=== PATIENT | male | born 1950 | race Two or more races ===

== ENCOUNTER 2021-11-22 07:55 | Outpatient (CLI) | payer OTHER | END 2021-11-22 08:07 | disposition home or self-care (01) | LOC: MRI 07:55 | PROVIDERS: ATTEND Urology | DX: N28.1 Cyst of kidney, acquired (principal); N40.0 Benign prostatic hyperplasia without lower urinary tract symptoms; R97.20 Elevated prostate specific antigen [PSA] | CPT/HCPCS: 74183; A9575 ==

== ENCOUNTER 2022-05-23 11:46 | Outpatient (CLI) | payer OTHER | END 2022-05-23 11:52 | disposition home or self-care (01) | LOC: SONOGRAMA 11:46 | PROVIDERS: ATTEND Urology | DX: N40.0 Benign prostatic hyperplasia without lower urinary tract symptoms (principal); R97.20 Elevated prostate specific antigen [PSA]; N28.1 Cyst of kidney, acquired ==

== ENCOUNTER 2022-12-18 07:07 | Outpatient (CLI) | payer OTHER | END 2022-12-18 07:17 | disposition home or self-care (01) | LOC: MRI 07:07 | PROVIDERS: ATTEND Urology | DX: N28.89 Other specified disorders of kidney and ureter (principal) | CPT/HCPCS: 74181 ==

== ENCOUNTER 2023-08-29 07:46 | Outpatient (CLI) | payer OTHER | END 2023-08-29 07:58 | disposition home or self-care (01) | LOC: MRI 07:46 | PROVIDERS: ATTEND Urology | DX: N40.0 Benign prostatic hyperplasia without lower urinary tract symptoms (principal); R97.20 Elevated prostate specific antigen [PSA]; N28.1 Cyst of kidney, acquired; C64.2 Malignant neoplasm of left kidney, except renal pelvis; N28.89 Other specified disorders of kidney and ureter | CPT/HCPCS: 74183; Q9965 ==